=== PATIENT | female | born 1980 | race Asian ===

== ENCOUNTER 2022-02-11 16:26 | Emergency (ER) | payer MEDICAID ==
[~2022-02-11] VITALS: Ht 154.9 cm; Wt 54.5 kg
[2022-02-11] MEDS ORDERED: KETOROLAC TROMETHAMINE 30 MG/ML VIAL IM ONE (17:00)
[2022-02-11 20:55] LABS: COVID AG,FIA SOURCE NASOPHARYNGEAL
[2022-02-12 00:10] VITALS: BP 121/71
== END 2022-02-12 00:11 | disposition home or self-care (01) ==
LOC: EMS 16:26
DX: R10.30 Lower abdominal pain, unspecified (principal); F41.9 Anxiety disorder, unspecified; Z20.822 Contact with and (suspected) exposure to COVID-19
CPT/HCPCS: 99283; 87426; 96372; J1885